=== PATIENT | female | born 1990 | race Caucasian/White ===

== ENCOUNTER 2021-06-14 04:03 | Day surgery (SDC) | payer OTHER ==
[2021-06-11 14:57] VITALS: BMI 38.6
[2021-06-14] MEDS ORDERED: LIDOCAINE HCL 1% EPINEPHRINE 1:200,000 30 ML VIAL (PF) ONE ×2 (09:02→09:13)
[2021-06-14] MEDS ORDERED: LIDOCAINE HCL 1%, 10 MG/ML (20ML VIAL) ONE (09:13)
[2021-06-14] MEDS ORDERED: ACETAMINOPHEN INJECTION 100 ML IVPB ONE (09:27)
[2021-06-14] MEDS ORDERED: MIDAZOLAM HCL 2 MG/2 ML SINGLE DOSE VIAL ONE (09:32)
[2021-06-14] MEDS ORDERED: ROCURONIUM BROMIDE 50 MG/5 ML SYRINGE ONE (09:48)
[2021-06-14] MEDS ORDERED: DEXAMETHASONE SOD PHOSPHATE 4 MG/1 ML VIAL ONE (09:53)
[2021-06-14] MEDS ORDERED: DEXAMETHASONE SOD PHOSPHATE 10 MG/1 ML VIAL ONE (09:53)
[2021-06-14] MEDS ORDERED: OXYMETAZOLINE 0.05% NASAL SOLUTION 15 ML BOTTLE NS ONE (10:10)
[2021-06-14] MEDS ORDERED: NEOSTIGMINE METHYLSULFATE 0.5 MG/ML - 10 ML MDV ONE (10:49)
[2021-06-14] MEDS ORDERED: SUGAMMADEX SODIUM 200 MG/2 ML VIAL ONE ×2 (11:05→11:09)
[2021-06-14] MEDS ORDERED: oxyCODONE HCL 5 MG TABLET PO PRN (11:24)
[2021-06-14] MEDS ORDERED: LACTATED RINGERS SOLUTION 1,000 ML IV SCH (11:30)
[2021-06-14 14:16] VITALS: BP 128/67; PULSE 77; TEMP 97.6
== END 2021-06-14 13:50 | disposition home or self-care (01) ==
LOC: JASU-SURG 04:03
PROVIDERS: ATTEND Otolaryngology
PROC: 09BL0ZZ Excision of Nasal Turbinate, Open Approach (ICD-10-PCS; 2021-06-14)
PROC: 0CTPXZZ Resection of Tonsils, External Approach (ICD-10-PCS; principal; 2021-06-14 09:00)
PROC: 0CTQ0ZZ Resection of Adenoids, Open Approach (ICD-10-PCS; 2021-06-14 09:00)
DX: J35.3 Hypertrophy of tonsils with hypertrophy of adenoids (principal); J34.3 Hypertrophy of nasal turbinates
CPT/HCPCS: 81025; 94760; J1100